=== PATIENT | male | born 1965 | race African-American/Black ===

== ENCOUNTER 2024-01-15 17:52 | Inpatient (IN) | payer MEDICAID ==
[~2024-01-15] VITALS: Ht 172.7 cm; Wt 63.5 kg
[2024-01-15 18:42] LABS: BASOPHILS # (AUTO) 0.1 K/uL (0.0-0.2); EOSINOPHILS # (AUTO) 0.1 K/uL (0.0-0.7); EOSINOPHILS % (AUTO) 1.1 % (0.0-6.0); HEMATOCRIT 42 % (39-51); HEMOGLOBIN 14.3 g/dL (13.5-17.5); LYMPHOCYTES % (AUTO) 39.6 % (20.0-44.0); MEAN CORPUSCULAR HEMOGLOBIN 37 PG (26.0-33.0); MEAN CORPUSCULAR HGB CONC 34 g/dl (31.0-36.0); MEAN CORPUSCULAR VOLUME 111 fL (80-96); MONOCYTES # (AUTO) 0.5 K/uL (0.1-1.30); MONOCYTES % (AUTO) 9.8 % (2.0-12.0); NEUTROPHILS # (AUTO) 2.4 K/uL (1.8-8.9); NEUTROPHILS % (AUTO) 48.5 % (43.0-81.0); PLATELET COUNT (AUTO) 119 K/uL (150-450); RED BLOOD CELL COUNT(AUTO) 3.81 MIL/uL (4.5-6.0); RED CELL DISTRIBUTION WIDTH 13.6 % (11.5-15.0)
[2024-01-15] MEDS ORDERED: IBUP-1955 PO (18:47)
[2024-01-15] MEDS ORDERED: PANT40TA2 PO (18:47)
[2024-01-15] MEDS ORDERED: BISA10SU11 RC (18:47)
[2024-01-15] MEDS ORDERED: ATEN25TA PO (18:47)
[2024-01-15] MEDS ORDERED: ATOR10TA PO (18:47)
[2024-01-15] MEDS ORDERED: SPIR50TA5 PO (18:47)
[2024-01-15] MEDS ORDERED: FAMO20TA8 PO (18:47)
[2024-01-15] MEDS ORDERED: METO10TA3 PO (18:47)
[2024-01-15 18:53] LABS: CALCIUM, SERUM 8.5 mg/dL (8.5-10.1); CARBON DIOXIDE 22 mmol/L (21-32); CHLORIDE 105 mmol/L (98-107); CREATININE 1.2 mg/dL (0.6-1.3); GLUCOSE 145 mg/dL (74-106); POTASSIUM 4.4 mmol/L (3.5-5.1); SODIUM SERUM 139 mmol/L (136-145); UREA NITROGEN, BLOOD 20 mg/dL (7-18)
[2024-01-15 18:59] LABS: ALANINE AMINOTRANSFERASE 28 U/L (12-78); ALBUMIN 3.2 g/dL (3.4-5.0); ALKALINE PHOSPHATASE 59 U/L (46-116); ASPARTATE AMINOTRANSFERASE 29 U/L (15-37); BILIRUBIN,DIRECT 0.9 mg/dL (0.0-0.2); BILIRUBIN,TOTAL 3.4 mg/dL (0.2-1.0); TOTAL PROTEIN, SERUM 7.1 g/dL (6.4-8.2)
[2024-01-15 19:11] LABS: LACTIC ACID 3.8 mmol/L (0.4-2.0)
[2024-01-15 19:32] LABS: ANISOCYTOSIS 1+; BAND % (MANUAL) 1 % (0.0-5.0); EOSINOPHILS % (MANUAL) 1 % (0-4); LYMPHOCYTES % (MANUAL) 46 % (16-48); MONOCYTES % (MANUAL) 10 % (0-11.0); NEUTROPHILS % (MANUAL) 42 (42-76); PLATELET ESTIMATE DECREASED
[2024-01-15] MEDS ORDERED: VANCOMYCIN 1 GM /D5W 250 ML PB IV ONE (19:38)
[2024-01-15] MEDS ORDERED: PIPERACI/TAZO 3.375GM/D5W 50ML PB IV ONE (19:38)
[2024-01-15] MEDS: PIPERACILLIN /TAZOBACTAM 3.375 G in IV D5W 50 ML IV ONE (19:41)
[2024-01-15] MEDS: VANCOMYCIN 1 GM in IV D5W 250 ML IV ONE (20:30)
[2024-01-15] MEDS ORDERED: IOHEXOL-350 100 ML VIAL IV ONE (23:15)
[2024-01-15] MEDS ORDERED: CT SWABBABLE VALVE TRANS SET 1 EA INFUS.SET MC ONE (23:15)
[2024-01-15] MEDS ORDERED: IV NS 0.9% 250 ML IV ONE (23:15)
[2024-01-16] MEDS ORDERED: ONDANSETRON HCL/PF 4 MG/2 ML VIAL IVP PRN (01:30)
[2024-01-16] MEDS ORDERED: ACETAMINOPHEN 325 MG TABLET PO PRN (01:30)
[2024-01-16] MEDS ORDERED: BISACODYL SUPP (10 MG) 10 MG/SUPP.RECT SUPP.RECT RC PRN (01:30)
[2024-01-16] MEDS ORDERED: Z GUARD REMEDY 4 OZ OINT TP PRN (01:30)
[2024-01-16] MEDS: BUMETANIDE INJ 0.25 MG/ML VIAL ONE (02:21)
[2024-01-16 03:01] LABS: IRON, SERUM 66 ug/dl (50-175); TOTAL IRON BINDING CAPACITY 381 ug/dl (250-450)
[2024-01-16] MEDS: BUMETANIDE INJ 6 MG in IV NS 0.9% 36 ML IV ONE (03:31)
[2024-01-16 04:00] VITALS: BP 101/82; TEMP 98.2; O2SAT 98
[2024-01-16 08:00] VITALS: BP 95/55; TEMP 97.5; O2SAT 98
[2024-01-16 08:20] LABS: BASOPHILS # (AUTO) 0.1 K/uL (0.0-0.2); EOSINOPHILS # (AUTO) 0.1 K/uL (0.0-0.7); HEMATOCRIT 44 % (39-51); HEMOGLOBIN 14.5 g/dL (13.5-17.5); LYMPHOCYTES # (AUTO) 1.7 K/uL (0.8-4.8); LYMPHOCYTES % (AUTO) 32.7 % (20.0-44.0); MEAN CORPUSCULAR HEMOGLOBIN 38 PG (26.0-33.0); MEAN CORPUSCULAR HGB CONC 33 g/dl (31.0-36.0); MEAN CORPUSCULAR VOLUME 114 fL (80-96); MONOCYTES # (AUTO) 0.5 K/uL (0.1-1.30); MONOCYTES % (AUTO) 9.5 % (2.0-12.0); NEUTROPHILS # (AUTO) 2.8 K/uL (1.8-8.9); NEUTROPHILS % (AUTO) 55.8 % (43.0-81.0); PLATELET COUNT (AUTO) 110 K/uL (150-450); RED BLOOD CELL COUNT(AUTO) 3.86 MIL/uL (4.5-6.0); RED CELL DISTRIBUTION WIDTH 13.8 % (11.5-15.0); RETICULOCYTE COUNT 2.6 % (0.6-2.5); WHITE BLOOD COUNT (AUTO) 5.1 K/uL (4.3-11.0)
[2024-01-16 08:43] LABS: CALCIUM, SERUM 9.1 mg/dL (8.5-10.1); CREATININE 1.1 mg/dL (0.6-1.3); MAGNESIUM 1.3 mg/dL (1.8-2.4); PHOSPHORUS 4.9 mg/dL (2.5-4.9)
[2024-01-16] MEDS: PANTOPRAZOLE 40 MG TABLET.DR PO SCH (08:49)
[2024-01-16] MEDS: ASPIRIN EC 81 MG TABLET.DR PO SCH (08:50)
[2024-01-16] MEDS: FAMOTIDINE (20 MG) 20 MG TABLET PO SCH (08:50)
[2024-01-16] MEDS: ENOXAPARIN SODIUM 40 MG/0.4 ML DISP.SYRIN SQ SCH (08:55)
[2024-01-16] MEDS: SPIRONOLACTONE 25 MG TABLET PO SCH (09:00)
[2024-01-16] MEDS ORDERED: ATENOLOL 25 MG TABLET PO SCH (09:00)
[2024-01-16] MEDS: FUROSEMIDE 40 MG/4 ML VIAL IV SCH (09:30)
[2024-01-16 09:50] LABS: THYROID STIMULATING HORMONE 4.884 uIU/mL (0.358-3.74)
[2024-01-16] MEDS ORDERED: MAGNESIUM OXIDE 400 MG TABLET PO SCH (10:00)
[2024-01-16] MEDS: POTASSIUM CHLORIDE 20 MEQ TAB.PRT.SR PO SCH (10:36)
[2024-01-16 12:00] VITALS: BP 108/81; TEMP 97.3; O2SAT 94
[2024-01-16 16:00] VITALS: BP 102/84; TEMP 97.9; O2SAT 98
[2024-01-16 20:00] VITALS: BP 104/80; TEMP 97.6; O2SAT 98
[2024-01-16] MEDS: ATORVASTATIN 10 MG TABLET PO SCH (22:22)
[2024-01-17] VITALS: BP 99/73; TEMP 97.9; O2SAT 100
[2024-01-17 04:00] VITALS: BP 102/70; TEMP 97.7; O2SAT 97
[2024-01-17] MEDS ORDERED: DOBUTamine 500 MG in IV D5W 210 ML IV PRN (07:30)
[2024-01-17] MEDS ORDERED: DoBUTamine 500 MG/250 ML PIGGYBACK IV ONE (07:30)
[2024-01-17 07:43] LABS: BASOPHILS % (AUTO) 0.7 % (0.0-2.0); EOSINOPHILS % (AUTO) 0.9 % (0.0-6.0); HEMATOCRIT 40 % (39-51); HEMOGLOBIN 13.4 g/dL (13.5-17.5); LYMPHOCYTES # (AUTO) 1.1 K/uL (0.8-4.8); LYMPHOCYTES % (AUTO) 20.8 % (20.0-44.0); MEAN CORPUSCULAR HEMOGLOBIN 37 PG (26.0-33.0); MEAN CORPUSCULAR HGB CONC 34 g/dl (31.0-36.0); MEAN CORPUSCULAR VOLUME 111 fL (80-96); MONOCYTES # (AUTO) 0.7 K/uL (0.1-1.30); MONOCYTES % (AUTO) 12.9 % (2.0-12.0); NEUTROPHILS # (AUTO) 3.4 K/uL (1.8-8.9); NEUTROPHILS % (AUTO) 64.7 % (43.0-81.0); PLATELET COUNT (AUTO) 110 K/uL (150-450); RED BLOOD CELL COUNT(AUTO) 3.58 MIL/uL (4.5-6.0); RED CELL DISTRIBUTION WIDTH 13.7 % (11.5-15.0); WHITE BLOOD COUNT (AUTO) 5.3 K/uL (4.3-11.0)
[2024-01-17] MEDS: FUROSEMIDE 40 MG/4 ML VIAL IV SCH ×2 (07:48→16:24)
[2024-01-17 08:00] VITALS: BP 92/66; TEMP 97.3; O2SAT 100
[2024-01-17 08:14] LABS: ALBUMIN 3.1 g/dL (3.4-5.0); BILIRUBIN,TOTAL 2.5 mg/dL (0.2-1.0); CALCIUM, SERUM 8.5 mg/dL (8.5-10.1); CREATININE 1.1 mg/dL (0.6-1.3); PHOSPHORUS 4.8 mg/dL (2.5-4.9); POTASSIUM 3.1 mmol/L (3.5-5.1); TOTAL PROTEIN, SERUM 6.8 g/dL (6.4-8.2)
[2024-01-17] MEDS: POTASSIUM CHLORIDE 20 MEQ TAB.PRT.SR PO SCH (11:07)
[2024-01-17 12:00] VITALS: BP 128/66; TEMP 97.7; O2SAT 99
[2024-01-17] MEDS: THIAMINE HCL 100 MG TABLET PO SCH (12:32)
[2024-01-17] MEDS: FOLIC ACID 1 MG TABLET PO SCH (12:32)
[2024-01-17] MEDS: POTASSIUM CHLORIDE 20 MEQ TAB.PRT.SR PO ONE (13:09)
[2024-01-17] MEDS: Magnesium 1GM/D5W 100ML PREMIX 100 ML IV SCH (13:10)
[2024-01-17 13:24] LABS: ANISOCYTOSIS 1+; PLATELET ESTIMATE DECREASED
[2024-01-17 16:00] VITALS: BP 91/74; TEMP 97.6
[2024-01-17 20:00] VITALS: BP 89/73; TEMP 98.8; O2SAT 100
[2024-01-18 04:00] VITALS: BP 109/81; TEMP 98.2; O2SAT 99
[2024-01-18 07:07] LABS: COMPLEMENT C3, SERUM 96 mg/dL (82-167); HAPTOGLOBIN <10 mg/dL (29-370)
[2024-01-18 07:10] LABS: BASOPHILS % (AUTO) 0.3 % (0.0-2.0); HEMATOCRIT 37 % (39-51); HEMOGLOBIN 12.6 g/dL (13.5-17.5); LYMPHOCYTES # (AUTO) 1.2 K/uL (0.8-4.8); LYMPHOCYTES % (AUTO) 23.1 % (20.0-44.0); MEAN CORPUSCULAR HEMOGLOBIN 38 PG (26.0-33.0); MEAN CORPUSCULAR HGB CONC 34 g/dl (31.0-36.0); MEAN CORPUSCULAR VOLUME 110 fL (80-96); MONOCYTES # (AUTO) 0.5 K/uL (0.1-1.30); MONOCYTES % (AUTO) 10.7 % (2.0-12.0); NEUTROPHILS # (AUTO) 3.2 K/uL (1.8-8.9); NEUTROPHILS % (AUTO) 64.9 % (43.0-81.0); PLATELET COUNT (AUTO) 97 K/uL (150-450); RED BLOOD CELL COUNT(AUTO) 3.34 MIL/uL (4.5-6.0); RED CELL DISTRIBUTION WIDTH 13.5 % (11.5-15.0)
[2024-01-18 07:28] LABS: CALCIUM, SERUM 8.1 mg/dL (8.5-10.1); CARBON DIOXIDE 24 mmol/L (21-32); CHLORIDE 101 mmol/L (98-107); CREATININE 1.1 mg/dL (0.6-1.3); GLUCOSE 91 mg/dL (74-106); POTASSIUM 3.7 mmol/L (3.5-5.1); SODIUM SERUM 139 mmol/L (136-145); UREA NITROGEN, BLOOD 30 mg/dL (7-18)
[2024-01-18 07:41] LABS: ALANINE AMINOTRANSFERASE 35 U/L (12-78); ALKALINE PHOSPHATASE 51 U/L (46-116); ASPARTATE AMINOTRANSFERASE 30 U/L (15-37); BILIRUBIN,TOTAL 2.6 mg/dL (0.2-1.0); PHOSPHORUS 5.1 mg/dL (2.5-4.9); TOTAL PROTEIN, SERUM 6.6 g/dL (6.4-8.2)
[2024-01-18 07:59] LABS: MAGNESIUM 1.2 mg/dL (1.8-2.4)
[2024-01-18 08:42] LABS: LACTIC ACID 2.8 mmol/L (0.4-2.0)
[2024-01-18] MEDS: METOPROLOL SUCCINATE 25 MG TAB.SR.24H PO SCH (09:00)
[2024-01-18] MEDS: SPIRONOLACTONE 25 MG TABLET PO SCH (09:00)
[2024-01-18] MEDS: MAGNESIUM OXIDE 400 MG TABLET PO SCH (09:05)
[2024-01-18] MEDS: FUROSEMIDE 40 MG TABLET PO SCH (09:06)
[2024-01-18 11:23] LABS: LACTIC ACID REFLEX 2.6 mmol/L (0.4-1.9)
[2024-01-18 12:00] VITALS: BP 105/60; TEMP 98.5; O2SAT 99
[2024-01-18 16:21] VITALS: BP 106/81; TEMP 97.7; O2SAT 99
[2024-01-18 20:00] VITALS: BP 104/74; TEMP 98.4; O2SAT 99
[2024-01-18 23:20] LABS: PLATELET ESTIMATE DECREASED
[2024-01-18 23:21] LABS: ANISOCYTOSIS 2+
[2024-01-19 04:00] VITALS: BP 104/74; TEMP 98.4
[2024-01-19 07:07] LABS: CALCIUM, SERUM 8.5 mg/dL (8.5-10.1); CARBON DIOXIDE 24 mmol/L (21-32); CHLORIDE 101 mmol/L (98-107); CREATININE 1.2 mg/dL (0.6-1.3); GLUCOSE 88 mg/dL (74-106); POTASSIUM 3.7 mmol/L (3.5-5.1); SODIUM SERUM 139 mmol/L (136-145); UREA NITROGEN, BLOOD 34 mg/dL (7-18)
[2024-01-19 08:01] LABS: MAGNESIUM 1.1 mg/dL (1.8-2.4)
[2024-01-19] MEDS ORDERED: Aspirin Ec PO (09:41)
[2024-01-19] MEDS ORDERED: METO25TA4 PO (09:41)
[2024-01-19] MEDS ORDERED: POTA10TA PO (09:41)
[2024-01-19] MEDS ORDERED: SPIR25TA6 PO (09:41)
[2024-01-19] MEDS ORDERED: FURO40TA5 PO (09:41)
[2024-01-19] MEDS: Magnesium 1GM/D5W 100ML PREMIX 100 ML IV SCH (09:45)
[2024-01-19] MEDS: MAGNESIUM OXIDE 400 MG TABLET PO SCH (09:49)
[2024-01-19] MEDS: METOPROLOL SUCCINATE 25 MG TAB.SR.24H PO SCH (09:50)
[2024-01-19] MEDS: POTASSIUM CHLORIDE 10 MEQ TABLET.SA PO SCH (09:52)
[2024-01-19 09:57] LABS: LACTIC ACID 3.3 mmol/L (0.4-2.0)
[2024-01-19 12:00] VITALS: BP 110/76; TEMP 97.8; O2SAT 99
[2024-01-19] MEDS: FUROSEMIDE 40 MG/4 ML VIAL IV ONE (12:51)
== END 2024-01-19 23:17 | DRG 194 ==
LOC: ER 17:52 → TELE1 01-16 01:14 → MEDSG1 01-17 11:52
PROVIDERS: ADMIT Nurse Practitioner Acute Care; ATTEND Internal Medicine
DX: I11.0 Hypertensive heart disease with heart failure (principal); E87.20 Acidosis, unspecified; I27.20 Pulmonary hypertension, unspecified; I50.43 Acute on chronic combined systolic (congestive) and diastolic (congestive) heart failure; D69.59 Other secondary thrombocytopenia; I25.10 Atherosclerotic heart disease of native coronary artery without angina pectoris; K21.9 Gastro-esophageal reflux disease without esophagitis; D75.89 Other specified diseases of blood and blood-forming organs; E78.5 Hyperlipidemia, unspecified; E83.42 Hypomagnesemia; E87.6 Hypokalemia; F10.20 Alcohol dependence, uncomplicated; I42.0 Dilated cardiomyopathy; M19.90 Unspecified osteoarthritis, unspecified site; E80.6 Other disorders of bilirubin metabolism; Z20.822 Contact with and (suspected) exposure to COVID-19; I08.0 Rheumatic disorders of both mitral and aortic valves
CPT/HCPCS: 36415; 71045-TC; 76700-TC; 80048-TC; 80053-TC; 80061-TC; 80076-TC; 82248-TC; 83010; 83540-TC; 83605-TC; 83615-TC; 83735-TC; 83880; 84100-TC; 84443-TC; 84484-TC; 85025-TC; 85045-TC; 85378-TC; 86160; 87040-TC; 87081-TC; 93307-TC; 93970-TC; A4223; G0378; J1250; J1650; J1940; J2543; J3370; J3475; J3490; J7050; J7060; Q9967